=== PATIENT | female | born 1990 | race African-American/Black ===

== ENCOUNTER 2018-02-15 03:22 | Emergency (ER) | payer OTHER ==
[2018-02-15 03:31] VITALS: BP 115/76; PULSE 98; TEMP 98.9; BMI 18.6
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
[2018-02-15] MEDS ORDERED: TETRACAINE 0.5% HCL 0.6ML DROPPER.BOTTLE OU ONE (04:52)
[2018-02-15] MEDS ORDERED: FLUORESCEIN NA 1 EA STRIP ONE (04:54)
[2018-02-15] MEDS ORDERED: TETRACAINE 0.5% OPHTH SOLN 2 ML BOTTLE ONE ×2 (04:54→05:12)
== END 2018-02-15 05:15 | disposition home or self-care (01) ==
LOC: JER 03:22
DX: S09.8XXA Other specified injuries of head, initial encounter (principal); S00.83XA Contusion of other part of head, initial encounter; S00.81XA Abrasion of other part of head, initial encounter; M54.2 Cervicalgia; Y04.2XXA Assault by strike against or bumped into by another person, initial encounter; Y93.89 Activity, other specified; Y92.89 Other specified places as the place of occurrence of the external cause; Y99.8 Other external cause status; Y07.9 Unspecified perpetrator of maltreatment and neglect
CPT/HCPCS: 70450-TC; 70486-TC; 72125-TC; 84703; 99283-25

== ENCOUNTER 2018-04-14 18:34 | Emergency (ER) | payer OTHER ==
[2018-04-14 18:57] VITALS: BP 107/80; PULSE 72; TEMP 98.3; BMI 18.6
--- NOTE | 2018-04-14 19:10 | PDOC ---
History of Present Illness - History of Present Illness Initial Comments: 04/14/18 19:35 Patient is a 27 year old female with a significant past medical history of who presents to the ED with complaints of sore throat that began x3 days ago. Patient reports throat pain has been gradually increasing over time with associated decreased appetite secondary to pain prompting her to come into the ED for further evaluation. She reports wanting a rapid strep test. Denies chest pain, Sob. Denies nausea, vomiting. Denies contact with sick individuals, out of state travelling. Denies fevers, chills. Denies any other symptoms. Allergies: None Social history: Lives with son, No smoking. No alcohol. No illicit drugs. Surgical history: None PMD: Dr. Issac Ralph Adult ROS General: No fevers or chills, no weakness, no weight loss HEENT: +Sore throat. No change in vision. No ear pain Cardiovascular: No chest pain or shortness of breath Respiratory:No cough, or wheezing. Gastrointestinal: No nausea, vomiting, diarrhea or constipation, No rectal bleeding Genitourinary: No dysuria, hematuria, or frequency Musculoskeletal: No joint or muscle pain or swelling Neurologic: No headache, vertigo, dizziness or loss of consciousness Psychiatric: No depression Skin: No rashes or easy bruising Endocrine: No increased thirst or abnormal weight change Allergic: No skin or latex allergy All other systems reviewed and normal Basic PE GENERAL: The patient is awake, alert, and fully oriented, in no acute distress. HEAD: Normal with no signs of trauma. EYES: Pupils equal, round and reactive to light, extraocular movements intact, sclera anicteric, conjunctiva clear. NECK: +Submandibular lymphadenopathy. +Posterior oropharynx erythema. +Enlarged tonsils bilaterally. +Small exudates. EXTREMITIES: Normal range of motion, no edema. NEUROLOGICAL: Normal speech, normal gait. PSYCH: Normal mood, normal affect. SKIN: Warm, Dry, normal turgor, no rashes or lesions noted. <Mauro Gautam - Last Filed: 04/14/18 19:35> - General History Source: Patient Exam Limitations: No Limitations - History of Present Illness Initial Comments: 04/14/18 19:48 A portion of this note was documented by scribe services under my direction. I have reviewed the details of the note, within reason, and agree with the documentation with the following case summary and management plan written by me. Patient treated in the ED. Nursing notes are reviewed and incorporated into the medical decision-making. Vital signs reviewed. Assessment and plan: This is a 27-year-old female who comes in complaining of 4 days of sore throat and upper respiratory tract type symptoms. Patient had a rapid strep done in the emergency room that was negative. Patient reassured and told to continue supportive care and follow-up with her primary care doctor after the holidays if not better <Rivera Elmore I - Last Filed: 04/14/18 19:51> - General Chief Complaint: Sore Throat Stated Complaint: SORE THROAT Time Seen by Provider: 04/14/18 19:09 Past History <Mauro Gautam - Last Filed: 04/14/18 19:35> - Past Medical History COPD: No - Suicide/Smoking/Psychosocial Hx Smoking History: Never smoked Have you smoked in the past 12 months: No Information on smoking cessation initiated: No Hx Alcohol Use: Yes (SOCIAL) Drug/Substance Use Hx: No Substance Use Type: Alcohol <Rivera Elmore I - Last Filed: 04/14/18 19:51> - Past Medical History Allergies/Adverse Reactions: Allergies Allergy/AdvReac Type Severity Reaction Status Date / Time No Known Allergies Allergy Verified 04/14/18 18:35 Home Medications: Ambulatory Orders NK [No Known Home Medication] 04/14/18 *Physical Exam - Vital Signs Last Vital Signs Temp Pulse Resp BP Pulse Ox 98.3 F 72 16 107/80 100 04/14/18 18:35 04/14/18 18:35 04/14/18 18:35 04/14/18 18:35 04/14/18 18:35 <Mauro Gautam - Last Filed: 04/14/18 19:35> - Vital Signs Last Vital Signs Temp Pulse Resp BP Pulse Ox 98.3 F 72 16 107/80 100 04/14/18 18:35 04/14/18 18:35 04/14/18 18:35 04/14/18 18:35 04/14/18 18:35 <Rivera Elmore I - Last Filed: 04/14/18 19:51> *DC/Admit/Observation/Transfer - Attestations Scribe Attestion: 04/14/18 19:35 Documentation prepared by Mauro Gautam, acting as biomedical engineering professor for Rivera Elmore MD. <Mauro Gautam - Last Filed: 04/14/18 19:35> - Discharge Dispostion Decision to Admit order: No <Rivera Elmore I - Last Filed: 04/14/18 19:51> Diagnosis at time of Disposition: Viral pharyngitis - Discharge Dispostion Disposition: HOME Condition at time of disposition: Stable - Referrals Referrals: Issac Ralph MD [Primary Care Provider] - - Patient Instructions Additional Instructions: Tylenol or Motrin as needed for pain. 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 Return to the emergency department immediately with ANY new, persistent or worsening symptoms. Continue any medications as previously prescribed by your physician. You should follow up with your primary doctor as soon as possible regarding today's emergency department visit. . Please make sure your doctor reviews the results of your emergency evaluation. Thank you for coming to the Emergency Department today for your care. It was a pleasure to see you today. Please note that your evaluation is INCOMPLETE until you follow-up with your doctor. - Post Discharge Activity
== END 2018-04-14 19:59 | disposition home or self-care (01) ==
LOC: FER 18:34
DX: J02.9 Acute pharyngitis, unspecified (principal); B97.89 Other viral agents as the cause of diseases classified elsewhere
CPT/HCPCS: 87070; 99281-25

== ENCOUNTER 2020-07-17 18:24 | Emergency (ER) | payer OTHER ==
[2020-07-17 19:20] VITALS: BP 103/77; PULSE 80; BMI 21.6
[2020-07-17 21:19] LABS: BASO % 0.5 % (0-2.0); EOS % 2.6 % (0-4.5); HEMATOCRIT 34.6 % (32.4-45.2); HEMOGLOBIN 11.8 GM/dL (10.7-15.3); LYMPH % 33.4 % (8-40); MCH 34.7 pg (25.7-33.7); MCHC 34.1 g/dl (32.0-36.0); MEAN CELL VOLUME 101.9 fl (80-96); MEAN PLT VOLUME 7.9 fl (7.5-11.1); MONO % 9.4 % (3.8-10.2); NEUT % 54.1 % (42.8-82.8); PLATELET COUNT 239 K/MM3 (134-434); RBC 3.39 M/mm3 (3.60-5.2); RDW 13.7 % (11.6-15.6)
[2020-07-17 21:43] LABS: EPI CELLS >36 /uL (0-25.1); HYALINE CASTS 1 /uL (0-3.1); URINE APPEARANCE CLOUDY; URINE BACTERIA 1096 /uL (0-1359); URINE BILIRUBIN NEGATIVE (NEGATIVE); URINE COLOR RED; URINE GLUCOSE (UA) NEGATIVE (NEGATIVE); URINE KETONE 1+ (NEGATIVE); URINE LEUK ESTERASE 1+ (NEGATIVE); URINE NITRITE NEGATIVE (NEGATIVE); URINE PROTEIN 2+ (NEGATIVE); URINE RBC 2332 /uL (0-23.9); URINE WBC 16 /uL (0-25.8)
[2020-07-17 21:44] LABS: POTASSIUM 4.1 mmol/L (3.5-5.1)
[2020-07-17 21:45] LABS: CALCIUM 8.5 mg/dL (8.5-10.1)
[2020-07-17 21:47] LABS: BLOOD UREA NITROGEN 13.2 mg/dL (7-18)
[2020-07-17 21:50] LABS: CREATININE 0.5 mg/dL (0.55-1.3)
== END 2020-07-18 00:53 | disposition home or self-care (01) ==
LOC: JER 18:24
DX: O23.41 Unspecified infection of urinary tract in pregnancy, first trimester (principal); O26.851 Spotting complicating pregnancy, first trimester; Z3A.01 Less than 8 weeks gestation of pregnancy
CPT/HCPCS: 36415; 76817-TC; 80048; 81003; 84702; 85025; 86850; 86900; 86901; 87086; 87186; 99284-25